=== PATIENT | male | born 1975 | race Caucasian/White ===

== ENCOUNTER 2017-01-18 18:50 | Emergency (ER) | payer SELFPAY ==
[2017-01-18 19:21] VITALS: BP 144/104
[2017-01-18] MEDS ORDERED: OXYCODONE-ACETAMINOPHEN 5-325 MG TABLET PO ONE (20:27)
[2017-01-18] MEDS ORDERED: CEPHALEXIN 500 MG CAPSULE PO ONE (20:28)
[2017-01-18] MEDS ORDERED: DIPH/PERTUSS(ACELL)/TETANUS VAC/PF 0.5 ML SYR (>=10YO) IM ONE (20:28)
--- NOTE | 2017-01-18 20:30 | ER Document Report ---
ED Wound - General Chief Complaint: Puncture Wound Stated Complaint: PUNCTURE WOUND Time Seen by Provider: 01/18/17 20:25 TRAVEL OUTSIDE OF THE [place] IN LAST 30 DAYS: No - HPI Patient complains to provider of: Puncture wound - right wrist Occurred: This afternoon - 430pm Onset/Duration: Sudden Quality of pain: Achy, Throbbing Severity: Moderate Context: Injury - feel and landed on a carli nail Skin Temperature: Warm Skin Color: Normal Capillary refill: < 3 seconds Sensations intact: Yes Distal pulses present: Yes Associated Symptoms: None Notes: pain with arom - Related Data Allergies/Adverse Reactions: No Known Allergies Allergy (Verified 01/18/17 19:18) Past Medical History - Social History Smoking Status: Current Every Day Smoker Family History: Reviewed & Not Pertinent Patient has suicidal ideation: No Patient has homicidal ideation: No Renal/ Medical History: Denies: Hx Peritoneal Dialysis Review of Systems - Review of Systems Constitutional: No symptoms reported Musculoskeletal: See HPI Neurological/Psychological: See HPI Physical Exam - Vital signs Vitals: Temp Pulse BP Pulse Ox 98.5 F 65 144/104 H 99 01/18/17 19:18 01/18/17 19:18 01/18/17 19:18 01/18/17 19:18 - General General appearance: Appears well, Alert In distress: None - Cardiovascular Pulses: Normal: Radial Normal capillary refill: Yes - Extremities Forearm: Normal, Nontender Wrist: Tender - at puncture site. No: Normal, Nontender, Axial load of thumb pain, Abrasion, Deformity, Dislocation, Ecchymosis, Instability, Laceration, Limited ROM, Navicular tenderness, Other Hand: Normal, Nontender. No: Tender, Abrasion, Deformity, Dislocation, Ecchymosis, Instability, Nail injury, Laceration, No evidence of human bite, No evidence of FB, Swelling, Tendon deficit, Other - Skin Notes: puncture right wrist volar surface with surrounding tenderness, no erythema, induration Course - Re-evaluation Re-evalutation: 01/18/17 21:06 Patient is a 41-year-old male who is hemodynamic stable, no acute distress and afebrile. Wound has been irrigated with Betadine and saline. Tetanus status updated and patient initiated on antibiotics. After performing a Medical Screening Examination, I estimate there is LOW risk for OPEN FRACTURE, COMPARTMENT SYNDROME, TENDON RUPTURE, ACUTE NEUROVASCULAR INJURY, or RETAINED FOREIGN BODY, thus I consider the discharge disposition reasonable. Also, there is no evidence or peritonitis, sepsis, or toxicity. I have reevaluated this patient multiple times and no significant life threatening changes are noted. The patient and I have discussed the diagnosis and risks, and we agree with discharging home with close follow-up with the understanding that symptoms and presentations can change. We also discussed returning to the Emergency Department immediately if new or worsening symptoms occur. We have discussed the symptoms which are most concerning (e.g., changing or worsening pain, fever, numbness, weakness, cool or painful digits) that necessitate immediate return. - Vital Signs Vital signs: Temp Pulse Resp BP Pulse Ox 98.5 F 65 144/104 H 99 01/18/17 19:18 01/18/17 19:18 01/18/17 19:18 01/18/17 19:18 - Diagnostic Test Radiology reviewed: Image reviewed, Reports reviewed Discharge - Discharge Clinical Impression: Puncture wound Condition: Good Disposition: HOME, SELF-CARE Instructions: Cephalexin (OM), Puncture Wound (OM), Tetanus Immunization Given ([facility]) Prescriptions: Cephalexin Monohydrate [Keflex 500 mg Capsule] 500 mg PO Q6H 5 Days capsule Forms: Return to Work Referrals: CAR WALLER MD [ACTIVE STAFF] - Follow up in 3-5 days
--- NOTE | 2017-01-18 20:57 | RADIOLOGY REPORT (SQ) ---
EXAM DESCRIPTION: WRIST RIGHT 3 VIEWS COMPLETED DATE/TIME: 01/18/2017 8:39 pm REASON FOR STUDY: puncture wound, r/o FB COMPARISON: None. NUMBER OF VIEWS: Three views. TECHNIQUE: AP, lateral, and oblique radiographic images acquired of the right wrist. LIMITATIONS: None. FINDINGS: MINERALIZATION: Normal. BONES: No acute fracture or dislocation. No worrisome bone lesions. Normal alignment. SOFT TISSUES: No soft tissue swelling. No foreign body. OTHER: No other significant finding. IMPRESSION: NO RADIOGRAPHIC EVIDENCE OF ACUTE INJURY. TECHNICAL DOCUMENTATION: JOB ID: [id number] [employer]- All Rights Reserved
[2017-01-18] MEDS ORDERED: HYDROCODONE/ACETAMINOPHEN 5-325 MG 6 TAB/DSPK PO PRN (21:27)
== END 2017-01-18 21:40 | disposition home or self-care (01) ==
LOC: ER 18:50
DX: S61.531A Puncture wound without foreign body of right wrist, initial encounter (principal); W45.0XXA Nail entering through skin, initial encounter; Y99.0 Civilian activity done for income or pay; F17.200 Nicotine dependence, unspecified, uncomplicated; Z23 Encounter for immunization
CPT/HCPCS: 90471; 90715; 99283